=== PATIENT | female | born 1955 | race Two or more races ===

== ENCOUNTER 2017-12-18 13:23 | Emergency (ER) | payer MEDICAID, OTHER ==
[~2017-12-18] VITALS: Ht 170.2 cm; Wt 68.0 kg
[2017-12-18] MEDS ORDERED: LORazepam 1MG TABLET PO ONE (13:30)
[2017-12-18 13:53] LABS: BASOPHILS # (AUTO) 0.02 x10^3/uL (0-0.1); BASOPHILS % (AUTO) 0 % (0-1); EOSINOPHILS # (AUTO) 0.08 x10^3/uL (0-0.4); EOSINOPHILS % (AUTO) 1 % (1-7); LYMPHOCYTES # (AUTO) 3.84 x10^3/uL (1-3.4); LYMPHOCYTES % (AUTO) 34 % (22-44); MD NO; MEAN CORPUSCULAR HEMOGLOBIN 32.3 pg (27.0-34.8); MEAN CORPUSCULAR HGB CONC 34.1 g/dL (32.4-35.8); MEAN CORPUSCULAR VOLUME 94.8 fL (80-100); MEAN PLATELET VOLUME 8.5 fL (7.4-10.4); MONOCYTES # (AUTO) 0.67 x10^3/uL (0.2-0.8); MONOCYTES % (AUTO) 6 % (2-9); NEUTROPHILS # (AUTO) 6.67 x10^3/uL (1.8-6.8); NEUTROPHILS % (AUTO) 59 % (42-75); PLATELET COUNT 181 x10^3/uL (130-400); RED BLOOD COUNT 4.96 x10^6/uL (3.82-5.3); RED CELL DISTRIBUTION WIDTH 14.4 % (9.6-15.2)
[2017-12-18 14:00] LABS: ALBUMIN 3.3 g/dL (3.4-5.0); ANION GAP 13 mmol/L (5-15); CALCIUM 8.6 mg/dL (8.5-10.1); CHLORIDE 100 mmol/L (98-107); CREATININE 0.73 mg/dL (0.55-1.02)
[2017-12-18] MEDS ORDERED: LORazepam 1MG TABLET ONE (14:19)
[2017-12-18] MEDS ORDERED: POTASSIUM CHLORIDE 20 MEQ TAB.ER.PRT ONE (14:19)
[2017-12-18] MEDS ORDERED: POTASSIUM CHLORIDE 20 MEQ TAB.ER.PRT PO ONE (14:30)
[2017-12-18] MEDS ORDERED: SPIR50TA4 PO (15:06)
[2017-12-18] MEDS ORDERED: FURO-93 PO (15:07)
[2017-12-18] MEDS ORDERED: BUPR150T6 PO (15:07)
[2017-12-18] MEDS ORDERED: THIAMINE 100MG TABLET PO ONE (16:00)
[2017-12-18 17:40] VITALS: BP 143/92
[2017-12-18] MEDS ORDERED: THIAMINE 100MG TABLET ONE (17:53)
== END 2017-12-18 18:48 | disposition home or self-care (01) ==
LOC: ED 16:39
DX: F10.120 Alcohol abuse with intoxication, uncomplicated (principal); F41.1 Generalized anxiety disorder; E87.6 Hypokalemia
CPT/HCPCS: 36415; 80048; 82040; 85025; 93005; 99285